=== PATIENT | female | born 1940 | race Hispanic/Latino ===

== ENCOUNTER 2017-05-26 15:34 | Outpatient (CLI) | payer MEDICARE ==
--- NOTE | 2017-05-26 16:01 | XRay Report ---
CHEST 2 VIEWS INDICATION: Preoperative exam. COMPARISON: 09/06/2013 FINDINGS: PA and lateral chest radiographs demonstrate borderline cardiomegaly. Mild aortic knob calcifications. Slight left lung base atelectasis or scarring. Otherwise clear lungs. Demineralized bones with bilateral shoulder degenerative changes. CONCLUSION: No acute chest process or significant interval change, as described. Thank you for the opportunity to participate in this patient's care.
== END 2017-05-26 15:35 | disposition home or self-care (01) ==
LOC: SPVIMAG 15:34
PROVIDERS: ATTEND Internal Medicine
DX: Z01.818 Encounter for other preprocedural examination (principal); I70.0 Atherosclerosis of aorta; M19.011 Primary osteoarthritis, right shoulder; M19.012 Primary osteoarthritis, left shoulder
CPT/HCPCS: 71046